=== PATIENT | female | born 1965 | race Caucasian/White ===

== ENCOUNTER 2016-12-14 16:39 | Inpatient (IN) | payer SELFPAY ==
[~2016-12-14] VITALS: Ht 317.5 cm; Wt 64.9 kg
[2016-12-14 19:18] LABS: BASOPHILS % 0.6 % (0.0-2.0); CHLORIDE 109 mEq/L (98-107); EOSINOPHILS % 2.6 % (0.0-5.0); MEAN CORPUSCULAR VOLUME 58.8 fL (81.0-99.0); MEAN PLATELET VOLUME 8.6 fl (7.4-10.4); MONOCYTES % 8.7 % (2.0-8.0); NEUTROPHILS % 70.1 % (40.0-76.0); PLATELET 373 x1000/uL (130-400); RED BLOOD CELL COUNT 3.35 mill/uL (4.2-5.4); RED CELL DISTRIBUTION WIDTH 22.4 % (11.6-14.6)
[2016-12-14 19:19] LABS: HEMATOCRIT. 19.7 % (36.0-48.0); HEMOGLOBIN. 5.3 g/dL (12.0-16.0)
[2016-12-14 19:20] LABS: PARTIAL THROMBOPLASTIN TIME 24.7 sec (23.4-31.0); PROTHROMBIN TIME 10.7 sec (9.4-11.6)
[2016-12-14 19:27] LABS: CARBON DIOXIDE 26 mEq/L (21-32); TROPONIN I < 0.02 ng/mL (0.00-0.04)
[2016-12-14 19:35] LABS: PLATELET ESTIMATE NORMAL
[2016-12-14 20:23] LABS: CLARITY URINE CLEAR (CLEAR); COLOR URINE YELLOW (YELLOW); GLUCOSE URINE NEGATIVE (NEGATIVE); KETONES URINE NEGATIVE (NEGATIVE); LEUKOCYTE ESTERASE URINE NEGATIVE (NEGATIVE); NITRITE URINE NEGATIVE (NEGATIVE); OCCULT BLOOD URINE TRACE (NEGATIVE); PROTEIN URINE NEGATIVE (NEGATIVE); SPECIFIC GRAVITY URINE 1.006 (1.005-1.030); UROBILINOGEN URINE 0.2 E.U./dL (0.2-1.0)
[2016-12-14] MEDS ORDERED: ETOMIDATE 2MG/ML 10ML VIAL IV ONE (21:00)
[2016-12-14] MEDS ORDERED: SUCCINYLCHOLINE CHLORIDE 200MG/10ML VIAL IV ONE (21:00)
[2016-12-14] MEDS ORDERED: PROPOFOL 10MG/ML 100ML 100 ML IV SCH (21:00)
[2016-12-14] MEDS ORDERED: HYDROCODONE/ACETAMINOPHEN 5/325MG TABLET PO PRN (23:30)
[2016-12-14] MEDS ORDERED: ONDANSETRON HCL 4MG/2ML VIAL IV PRN (23:30)
[2016-12-14] MEDS ORDERED: ACETAMINOPHEN 325MG TABLET PO PRN (23:30)
[2016-12-14] MEDS ORDERED: DIPHENHYDRAMINE 50MG/ML VIAL IV ONE (23:30)
[2016-12-14] MEDS ORDERED: DOCUSATE SODIUM 100MG CAPSULE PO PRN (23:30)
[2016-12-14] MEDS ORDERED: IPRATROPIUM/ALBUTEROL 0.5-3(2.5)MG/3ML NEB INH PRN (23:30)
[2016-12-15] VITALS (14 sets, daily range): BP systolic 90–124; BP diastolic 47–68
[2016-12-15] MEDS ORDERED: ZOLPIDEM TARTRATE 5MG TABLET PO PRN (00:44)
[2016-12-15] MEDS ORDERED: DIPHENHYDRAMINE 50MG/ML VIAL IV PRN (01:30)
[2016-12-15] MEDS ORDERED: FERR325T6 PO (02:00)
[2016-12-15 06:52] LABS: PROTHROMBIN TIME 10.7 sec (9.4-11.6)
[2016-12-15 07:07] LABS: HEMATOCRIT 24.5 % (36.0-48.0); HEMOGLOBIN 7.2 g/dL (12.0-16.0)
[2016-12-15 07:08] LABS: BASOPHILS % 0.8 % (0.0-2.0); EOSINOPHILS % 4.3 % (0.0-5.0); HEMATOCRIT. 24.4 % (36.0-48.0); HEMOGLOBIN. 7.1 g/dL (12.0-16.0); LYMPHOCYTES % 24.3 % (20.0-50.0); MEAN CORPUSCULAR HEMOGLOBIN 19.4 pg (28.0-32.0); MEAN CORPUSCULAR VOLUME 66.5 fL (81.0-99.0); MONOCYTES % 9.2 % (2.0-8.0); NEUTROPHILS % 61.4 % (40.0-76.0); PLATELET 322 x1000/uL (130-400); RED BLOOD CELL COUNT 3.67 mill/uL (4.2-5.4)
[2016-12-15 07:57] LABS: CARBON DIOXIDE 24 mEq/L (21-32); CHLORIDE 111 mEq/L (98-107); TOTAL IRON BINDING CAPACITY 428 ug/dL (250-450)
[2016-12-15] MEDS ORDERED: FERROUS SULFATE 325MG TABLET PO SCH (09:00)
[2016-12-15] MEDS ORDERED: MEDICATION NOT ON FORMULARY EA (Ferrous Sulfate 325 MG) PO SCH (09:00)
[2016-12-15] MEDS ORDERED: INFLUENZA VIRUS VACCINE 0.5ML SYR IM ONE (12:00)
== END 2016-12-16 00:15 | disposition home or self-care (01) | DRG 532 ==
LOC: ER 17:00 → 6EST 21:00 → EDBEDREQSVC 21:04 → ENRESERV 21:37 → SUPCPDRO 23:14
PROVIDERS: ADMIT Family Medicine Adult Medicine; ATTEND Family Medicine Adult Medicine
PROC: 30233N1 Transfusion of Nonautologous Red Blood Cells into Peripheral Vein, Percutaneous Approach (ICD-10-PCS; principal; 2016-12-14)
DX: D25.9 Leiomyoma of uterus, unspecified (principal); E44.1 Mild protein-calorie malnutrition; D50.9 Iron deficiency anemia, unspecified; E87.6 Hypokalemia; N93.8 Other specified abnormal uterine and vaginal bleeding; Z68.1 Body mass index [BMI] 19.9 or less, adult
CPT/HCPCS: 36415; 80048; 80053; 81001; 83540; 83550; 84484; 85014; 85018; 85025; 85049; 85384; 85610; 85730; 86078; 86850; 86900; 86920; 90686; 93005; 96374; 99285; J1200; J7030; J7042; J7050; P9016